=== PATIENT | male | born 1955 | race Asian ===

== ENCOUNTER 2019-03-07 09:16 | Emergency (ER) | payer OTHER ==
[~2019-03-07] VITALS: Ht 176 cm; Wt 65.8 kg
[2019-03-07 10:05] LABS: CALCIUM 9.1 mg/dL (8.5-10.1); CREATININE 0.6 mg/dL (0.7-1.3); POTASSIUM 3.6 mmol/L (3.5-5.1)
[2019-03-07 10:09] LABS: HEMATOCRIT 40.1 % (42.0-52.0); HEMOGLOBIN 13.6 gm/dL (14.0-18.0); MCH 29.7 pg (26.0-34.0); MCV 87.4 fL (80.0-100.0); PLATELET COUNT 183 thou/uL (150-400); RBC 4.59 mil/uL (4.50-6.00); RDW 15.3 % (10.5-14.5); WBC 2.8 thou/uL (4.0-11.0)
[2019-03-07 10:10] LABS: ALBUMIN 3.8 g/dL (3.4-5.0); APTT 30.1 Seconds (24.5-32.8); PROTIME 9.9 Seconds (9.3-11.4); TOTAL BILIRUBIN 0.8 mg/dL (<0.1-1.0); TOTAL PROTEIN 7.6 g/dL (6.4-8.2)
[2019-03-07 10:28] LABS: ABSOLUTE NEUTROPHILS 1.8 thou/uL (1.4-8.2); PLATELET ESTIMATE NORMAL
[2019-03-07] MEDS ORDERED: IRON325 PO (10:36)
[2019-03-07] MEDS ORDERED: PROTONIX40 MG PO (10:36)
[2019-03-07 12:07] LABS: URINE BILIRUBIN NEGATIVE (Negative); URINE BLOOD NEGATIVE (Negative); URINE CLARITY CLEAR; URINE COLOR YELLOW; URINE GLUCOSE-RANDOM* NEGATIVE (Negative); URINE KETONES NEGATIVE (Negative); URINE LEUKOCYTES-REFLEX NEGATIVE (Negative); URINE NITRITE-REFLEX NEGATIVE (Negative); URINE PROTEIN (DIPSTICK) NEGATIVE (Negative); URINE SPECIFIC GRAVITY <= 1.005 (1.005-1.035); URINE UROBILINOGEN 0.2 E.U./dl (0.2-1.0)
[2019-03-07] MEDS ORDERED: LACTULOSE10 GM/152 PO (12:36)
[2019-03-07 12:54] VITALS: BP 132/83
== END 2019-03-07 12:55 | disposition home or self-care (01) ==
LOC: ER 09:16
PROVIDERS: Emergency Medicine
DX: K62.5 Hemorrhage of anus and rectum (principal); Z86.2 Personal history of diseases of the blood and blood-forming organs and certain disorders involving the immune mechanism